=== PATIENT | male | born 1995 | race Caucasian/White ===

== ENCOUNTER 2019-07-04 20:23 | Emergency (ER) | payer OTHER ==
[2019-07-04 20:36] VITALS: TEMP 100.3
--- NOTE | 2019-07-04 21:17 | ED.PDOC ---
History of Present Illness - General Chief Complaint: Fever Stated Complaint: fever Time Seen by Provider: 07/04/19 20:45 - History of Present Illness Initial Comments: c/o having fever for 1 day , no sore throat or cough , no sob or wheezing Review of Systems - Review of Systems Constitutional: States: see HPI EENTM: States: no symptoms reported Respiratory: States: no symptoms reported Cardiology: States: no symptoms reported Gastrointestinal/Abdominal: States: no symptoms reported Genitourinary: States: no symptoms reported Musculoskeletal: States: no symptoms reported Skin: States: no symptoms reported Neurological: States: no symptoms reported Endocrine: States: no symptoms reported Hematologic/Lymphatic: States: no symptoms reported Past Medical History (General) - Patient Medical History Hx Diabetes: No Surgical History: no surgical history - Vaccination History Hx Influenza Vaccination: No Family Medical History - Family History Father Family History: Unknown Physical Exam - Physical Exam General Appearance: Alert, Comfortable Eye Exam: bilateral normal ENT Exam: normal ENT inspection Neck: non-tender, full range of motion, supple, normal inspection Respiratory: lungs clear, normal breath sounds, no respiratory distress, no accessory muscle use Cardiovascular/Chest: regular rate, rhythm, no edema, no gallop, no JVD, no murmur Extremity: normal range of motion, non-tender, normal inspection, no pedal edema Neurologic: no motor/sensory deficits, alert, normal mood/affect, oriented x 3 Skin Exam: normal color, warm/dry Progress - Results/Orders Results/Orders: Laboratory Results Group A Strep Rapid Positive (NEGATIVE) 07/04/19 20:44 Departure - Departure Clinical Impression: Fever in adult, Streptococcal sore throat Time of Disposition: 21:17 Disposition: Discharge to Home or Self Care Condition: Good Departure Forms: ED Discharge - Pt. Copy, Patient Portal Self Enrollment Diet: resume usual diet Activity: increase activity as tolerated, walking as tolerated Referrals: Noah Foy MD [Primary Care Provider] - 1-2 Weeks Prescriptions: Amoxicillin 500 mg PO TID #30 cap Home Medications: Ambulatory Orders Amoxicillin 500 mg PO TID #30 cap 07/04/19 Additional Instructions: Return to the ER if symptoms gets worse Tylenol 1 gram every 6 hours
[2019-07-04] MEDS ORDERED: AMOXICILLIN 500 MG CAP PO ONE (21:23)
[2019-07-04 21:36] VITALS: BP 110/68; O2SAT 99
== END 2019-07-04 21:36 | disposition home or self-care (01) ==
LOC: ER 20:23
DX: J02.0 Streptococcal pharyngitis (principal)